=== PATIENT | female | born 1965 | race African-American/Black ===

== ENCOUNTER 2023-05-31 10:06 | Emergency (ER) | payer MEDICAID, OTHER ==
[~2023-05-31] VITALS: Ht 157.5 cm; Wt 73.0 kg
[~2023-05-31 10:06] MED LIST: CEPH500T PO; DIPH25CA83 PO; HYDR59LO7 TP; SULF1TAB48 PO
[2023-05-31 10:33] VITALS: O2SAT 98
[2023-05-31] MEDS ORDERED: DIPHENHYDRAMINE 50MG CAPSULE PO ONE (10:45)
[2023-05-31] MEDS ORDERED: MUPI15CR11 TP (10:50)
[2023-05-31] MEDS ORDERED: DIPH-1207 MT (10:51)
[2023-05-31] MEDS ORDERED: P50 MT (10:52)
[2023-05-31] MEDS: PREDNISONE 20MG TABLET PO SCH (11:09)
[2023-05-31] MEDS: DIPHENHYDRAMINE 25MG CAPSULE PO NR (11:09)
[2023-05-31] MEDS ORDERED: AMLODIPINE 10MG TABLET PO ONE (11:45)
[2023-05-31] MEDS: AMLODIPINE 5MG TABLET PO NR (11:50)
[2023-05-31 12:45] VITALS: BP 219/91; PULSE 78; RESP 16; TEMP 97.8
[2023-05-31] MEDS: HYDRALAZINE HCL 25MG TABLET PO ONE (13:00)
== END 2023-05-31 14:21 | disposition home or self-care (01) ==
LOC: ER 10:06
DX: R21 Rash and other nonspecific skin eruption (principal); Z79.899 Other long term (current) drug therapy; Z88.5 Allergy status to narcotic agent
CPT/HCPCS: 99285; Q0163; J7512

== ENCOUNTER 2024-06-20 09:35 | Emergency (ER) | payer OTHER ==
[~2024-06-20] VITALS: Ht 157.5 cm; Wt 72.6 kg
[~2024-06-20 09:35] MED LIST changes: +DIPH-1207 MT; +MUPI15CR11 TP; +P50 MT
[2024-06-20 09:40] VITALS: BP 194/96; TEMP 36.8; O2SAT 99
[2024-06-20 09:41] VITALS: PULSE 86; RESP 18; O2SAT 100
[2024-06-20] MEDS: DEXAMETHASONE 10 MG/ML VIAL IM ONE (10:56)
[2024-06-20] MEDS: FAMOTIDINE 20MG TABLET PO ONE (10:56)
[2024-06-20] MEDS ORDERED: CETI10CA2 MT (11:18)
[2024-06-20] MEDS ORDERED: EPIN0.3P3 IM (11:18)
== END 2024-06-20 11:31 | disposition home or self-care (01) ==
LOC: ER 09:35
DX: T78.49XA Other allergy, initial encounter (principal); I10 Essential (primary) hypertension; Z79.52 Long term (current) use of systemic steroids; Z88.5 Allergy status to narcotic agent; X58.XXXA Exposure to other specified factors, initial encounter
CPT/HCPCS: 99283; 96372; J1100